=== PATIENT | female | born 1990 | race Caucasian/White ===

== ENCOUNTER 2020-02-27 20:21 | Emergency (ER) | payer SELFPAY ==
[~2020-02-27] VITALS: Ht 152.4 cm; Wt 69.9 kg
[2020-02-27 20:30] VITALS: BP 133/85
[2020-02-27 20:51] LABS: BILIRUBIN,URINE SMALL (NEG); CLARITY,URINE CLEAR; COLOR,URINE RED; NITRITE,URINE POSITIVE (NEG); PROTEIN,URINE 100 mg/dL (NEG-TRACE)
[2020-02-27 20:56] LABS: BACTERIA,URINE MANY /HPF (0-FEW); WBC,URINE TNTC /HPF (0-4)
[2020-02-27 20:57] LABS: SQUAMOUS EPITHELIAL CELL,UR FEW /LPF
[2020-02-27] MEDS ORDERED: CEPH500T PO (21:08)
[2020-02-27] MEDS ORDERED: PHEN100T82 PO (21:08)
--- NOTE | 2020-02-27 21:08 | PHYS DOC ---
Past Medical History Attending Signature I have participated in the care of this patient and I have reviewed and agree with all pertinent clinical information above including history, exam, and recommendations. (CHRYSTAL HERNÁNDEZ MD) Adult General Chief Complaint Chief Complaint: ABDOMINAL PAIN HPI HPI Patient is a 30 year old female who presents to the ED today complaining of dysuria and left lower quadrant abdominal pain that began yesterday. Patient states this is her typical presentation for UTI. Denies any fever. Denies any nausea, vomiting. She states she tried Azo with no relief. Denies any chance she is . (DANK PALMER APRN) Review of Systems Review of Systems Constitutional: Denies fever or chills [] Eyes: Denies change in visual acuity, redness, or eye pain [] HENT: Denies nasal congestion or sore throat [] Respiratory: Denies cough or shortness of breath [] Cardiovascular: No additional information not addressed in HPI [] GI: Reports left lower quadrant abdominal pain, denies nausea, vomiting, bloody stools or diarrhea [] : Reports dysuria, denies hematuria [] Musculoskeletal: Denies back pain or joint pain [] Integument: Denies rash or skin lesions [] Neurologic: Denies headache, focal weakness or sensory changes [] All other systems were reviewed and found to be within normal limits, except as documented in this note. (DANK PALMER APRN) Physical Exam Physical Exam Constitutional: Well developed, well nourished, no acute distress, non-toxic appearance. [] HENT: Normocephalic, atraumatic, bilateral external ears normal, oropharynx moist, no oral exudates, nose normal. [] Eyes: PERRLA, EOMI, conjunctiva normal, no discharge. [] Neck: Normal range of motion, no tenderness, supple, no stridor. [] Cardiovascular:Heart rate regular rhythm, no murmur [] Lungs & Thorax: Bilateral breath sounds clear to auscultation [] Abdomen: Bowel sounds normal, soft, no tenderness, no masses, no pulsatile masses. [] Skin: Warm, dry, no erythema, no rash. [] Back: No tenderness, no CVA tenderness. [] Extremities: No tenderness, no cyanosis, no clubbing, ROM intact, no edema. [] Neurologic: Alert and oriented X 3, normal motor function, normal sensory function, no focal deficits noted. [] Psychologic: Affect normal, judgement normal, mood normal. [] (DANK PALMER APRN) Current Patient Data Vital Signs Vital Signs Date Time Temp Pulse Resp B/P (MAP) Pulse Ox O2 Delivery O2 Flow Rate FiO2 02/27/20 20:30 98.3 106 24 133/85 (101) 99 Room Air 98.3 (CHRYSTAL HERNÁNDEZ MD) Lab Values Laboratory Tests Test 02/27/20 20:38 Urine Collection Type Unknown Urine Color Red Urine Clarity Clear Urine pH 5.0 (<5.0-8.0) Urine Specific [place] 1.010 (1.000-1.030) Urine Protein 100 mg/dL (NEG-TRACE) Urine Glucose (UA) Negative mg/dL (NEG) Urine Ketones (Stick) Trace mg/dL (NEG) Urine Blood Trace (NEG) Urine Nitrite Positive (NEG) Urine Bilirubin Small (NEG) Urine Urobilinogen Dipstick 2.0 mg/dL (0.2 mg/dL) Urine Leukocyte Esterase Large (NEG) Urine RBC 1-2 /HPF (0-2) Urine WBC Tntc /HPF (0-4) Urine Squamous Epithelial Cells Few /LPF Urine Bacteria Many /HPF (0-FEW) Urine Mucus Slight /LPF (CHRYSTAL HERNÁNDEZ MD) EKG EKG [] (DANK PALMER APRN) Radiology/Procedures Radiology/Procedures [] (DANK PALMER APRN) Course & Med Decision Making Course & Med Decision Making Pertinent Labs and Imaging studies reviewed. (See chart for details) This is a 30-year-old female patient presenting to the ED today with UTI symptoms, urine is positive for UTI. Discharged with cephalexin. Follow-up with PCP in 1-2 weeks. Encouraged to push fluids. (DANK PALMER APRN) Dragon Disclaimer Dragon Disclaimer This electronic medical record was generated, in whole or in part, using a voice recognition dictation system. (DANK PALMER APRN) Departure Departure Impression: Primary Impression: Urinary tract infection Disposition: HOME, SELF-CARE Condition: STABLE Referrals: WELLINGTON KIMBLE MD (PCP) Follow-up in 1-2 weeks Patient Instructions: Urinary Tract Infection Additional Instructions: You have urinary tract infection, ensure you complete your antibiotics, push fluids. Follow-up with your own doctor in 1-2 weeks. You can take Tylenol or Motrin for pain or fever. Scripts Phenazopyridine Hcl (PYRIDIUM) 100 Mg Tablet 1 TAB PO TID for urinary discomfort for 2 Days, #6 TAB 0 Refills Prov: DANK PALMER APRN 02/27/20 Cephalexin (CEPHALEXIN) 500 Mg Tablet 1 TAB PO BID, #20 TAB Prov: DANK PALMER APRN 02/27/20 Problem Qualifiers Primary Impression: Urinary tract infection Urinary tract infection type: site unspecified Hematuria presence: without hematuria Qualified Codes: N39.0 - Urinary tract infection, site not specified DANK PALMER APRN Feb 27, 2020 21:08 CHRYSTAL HERNÁNDEZ MD Feb 28, 2020 05:08
== END 2020-02-27 21:26 | disposition home or self-care (01) ==
LOC: ER 20:21
DX: N39.0 Urinary tract infection, site not specified (principal); R10.32 Left lower quadrant pain; R30.0 Dysuria
CPT/HCPCS: 81001; 87086; 99283